=== PATIENT | male | born 1980 | race Caucasian/White ===

== ENCOUNTER 2017-03-05 08:14 | Day surgery (SDC) | payer BC ==
[~2017-03-05 08:14] MED LIST: Buffered Lidocaine 0.9% SYRIN* 5 ML/SYR SYRINGE INTRADERM ONE; Buffered Lidocaine 0.9% SYRIN* 5 ML/SYR SYRINGE ONE; Dexamethasone IV* 4 MG/ML 1 ML (4 MG) ONE; Dexamethasone TAB* 4 MG PO ONE; Famotidine IV* 10 MG/ML 2 ML (20 mg) IV ONE; Famotidine IV* 10 MG/ML 2 ML (20 mg) ONE; Morphine INJ* 2 MG/ML 1 ML CARPUJECT IV PRN; PROCHLORPERAZINE INJ 5 MG/ML 2 ML VIAL IV PRN; fentaNYL* 50 MCG/ML 2 ML VIAL (100 MCG VIAL) IV PRN; oxyCODONE/Acetamin 5/325 MG* TAB PO PRN
[2017-03-05] MEDS ORDERED: Dexamethasone TAB* 4 MG ONE (09:02)
[2017-03-05] MEDS ORDERED: Lidocaine 2% EPI 1:200000 MPF* 20 ML VIAL ONE (09:29)
[2017-03-05] MEDS ORDERED: Oxymetazoline 0.05% NASAL SPR* 15 ML BTL ONE (09:29)
[2017-03-05] MEDS ORDERED: fentaNYL* 50 MCG/ML 2 ML VIAL (100 MCG VIAL) ONE (09:36)
[2017-03-05] MEDS ORDERED: KETAMINE HCL* 50 MG/ML 10 ML VIAL ONE (09:36)
[2017-03-05] MEDS ORDERED: Midazolam* 1 MG/ML 5 ML VIAL (5 MG) ONE (09:36)
[2017-03-05] MEDS ORDERED: Propofol* 10 MG/ML 20 ML BTL IV PUSH ONE (10:10)
[2017-03-05] MEDS ORDERED: Lidocaine 2% PF * 5 ML VIAL ONE (10:10)
[2017-03-05] MEDS ORDERED: PROCHLORPERAZINE INJ 5 MG/ML 2 ML VIAL ONE (10:10)
[2017-03-05] MEDS ORDERED: Ondansetron INJ* 2 MG/ML VIAL ONE (10:10)
[2017-03-05] MEDS ORDERED: HYDROcodone/ACET. 7.5/325 LIQ* 15 ML UDC ONE (11:26)
[2017-03-05 11:29] VITALS: BP 131/91
--- NOTE | 2017-03-06 04:11 | OP ---
DATE OF OPERATION: 03/05/17 - [facility] DATE OF : 84 SURGEON: Shady Mcdowell MD ANESTHESIOLOGIST: Kendall Waters MD ANESTHESIA: General PRE-OP DIAGNOSES: Deviated nasal septal septum, hypertrophied turbinates, nasal dyspnea. POST-OP DIAGNOSES: Deviated nasal septal septum, hypertrophied turbinates, nasal dyspnea. OPERATIVE PROCEDURE: Septoplasty and submucosal resection of the inferior turbinate. INDICATIONS: This 36-year-old gentleman with significant history of nasal trauma and subsequent deformity of the nasal septum with complete nasal obstruction on the right side. He elected for surgical management. DESCRIPTION OF PROCEDURE: The patient was taken to the operating room, general anesthesia was given, the patient was then intubated with LMA. 2% lidocaine with epinephrine was infiltrated into the septal mucosa on both sides and at the inferior turbinates, Roberto soaked packs were then placed for decongestant with Afrin. Packing was removed and right hemitransfixion incision created. Mucoperichondrial flap was elevated. Quadrangular cartilage was then disarticulated along the vomer ethmoidal complex posteriorly and along the maxillary crest inferiorly. A portion of the cartilage was then removed. Then , I morselized it for replacement again. An L-shaped strut was preserved. Subsequently, large portion of the bony vomer complex was removed and portion of the maxillary crest was removed. Once this was done, I placed the morselized septum back into the place and secured it securely with chromic sutures. The hemitransfixion incision was closed. Subsequently, splinting was applied with [place] splint, which was secured with 2-0 silk. Then, we turned our attention to the inferior turbinates. Submucosal resection was carried out , making incision and submucosal tissue removing some of the submucosal bone and then cauterizing the submucosal tissue for hemostasis. Nasal dressing was applied. The patient was awakened, sent to recovery room in stable condition. Instrument and sponge count correct. Blood loss minimal. [id number] #: [id number] MTDD
== END 2017-03-05 11:44 | disposition home or self-care (01) ==
LOC: OR 08:14
PROVIDERS: ATTEND Otolaryngology
DX: J34.2 Deviated nasal septum (principal); J34.3 Hypertrophy of nasal turbinates; J45.909 Unspecified asthma, uncomplicated
CPT/HCPCS: A9270-GY; J0780; J1100; J2250; J2405; J2704; J3010; J8540